=== PATIENT | female | born 1990 | race American Indian/Alaskan Native ===

== ENCOUNTER 2022-12-02 07:40 | Day surgery (SDC) | payer OTHER ==
[2022-11-30 12:14] VITALS: BMI 32.1
[~2022-12-02 07:40] MED LIST: LACTATED RINGERS 1,000 ML IV SCH
[2022-12-02] MEDS ORDERED: PROPOFOL 10 MG/ML 20 ML VIAL IV ONE (08:24)
[2022-12-02] MEDS ORDERED: MIDAZOLAM 2 MG/2 ML VIAL ONE (08:24)
[2022-12-02] MEDS ORDERED: fentaNYL (PF) 50 MCG/ML 2 ML AMP ONE (08:24)
[2022-12-02] MEDS ORDERED: LIDOCAINE 2% INJ 20 MG/ML (2 ML VIAL) ONE (08:24)
--- NOTE | 2022-12-02 08:26 | P.GSHP ---
History of Present Illness H&P Date: 12/02/22 Chief Complaint: GERD, diverticulitis This a 32-year-old female who has complaints of GERD. He states he is also recently diagnosed with diverticulitis. She has significant left lower quadrant pain a month ago. Patient presents today for EGD and colonoscopy. Past Medical History Past Medical History: GERD/Reflux History of Any Multi-Drug Resistant Organisms: None Reported Additional Past Surgical History / Comment(s): EGD Past Anesthesia/Blood Transfusion Reactions: No Reported Reaction Smoking Status: Former smoker - Past Family History Mother Family Medical History: No Reported History Medications and Allergies Home Medications Medication Instructions Recorded Confirmed Type Famotidine [Pepcid] 20 mg PO DAILY 11/30/22 12/02/22 History Allergies Allergy/AdvReac Type Severity Reaction Status Date / Time latex Allergy Rash/Hives Verified 12/02/22 07:51 Surgical - Exam Vital Signs Temp Pulse Resp BP Pulse Ox 97.8 F 92 18 138/61 96 12/02/22 08:02 12/02/22 08:02 12/02/22 08:02 12/02/22 08:02 12/02/22 08:02 - General well developed, well nourished, no distress - Eyes PERRL - ENT normal pinna - Neck no masses - Respiratory normal expansion - Cardiovascular Rhythm: regular - Abdomen Abdomen: soft, non tender Assessment and Plan Assessment: History of GERD and diverticulitis. We'll perform EGD and colonoscopy.
--- NOTE | 2022-12-02 08:45 | P.OP ---
Date of Procedure: 12/02/22 Preoperative Diagnosis: GERD Diverticulitis Postoperative Diagnosis: Mild esophagitis Normal colon: Procedure(s) Performed: EGD Colonoscopy Anesthesia: MAC Surgeon: Mitchell Rivas Pathology: other (Esophagus) Condition: stable Disposition: PACU Description of Procedure: Patient's placed on the endoscopy table in the lateral position. She received IV sedation. The gastro-/oropharynx passed in the esophagus and stomach. Scope was placed through the pylorus. The first and second portion of the duodenum appeared normal. Scope summer back the antrum this appeared normal. Scope was retroflexed and there was a small hiatal hernia visualized. The GE junction was at 39 cm. The distal esophagus. Minimal inflamed. A biopsies performed. The proximal esophagus appeared normal. Scope withdrawn for patient. Next digital rectal exam was performed. This revealed no ebonized. The flexible colonoscope was then placed patient anus passed throughout the entire colon. Ileocecal valve was visualized. The cecum, ascending and transverse colon appeared normal. The descending and sigmoid colon appeared normal. Scope summer back the rectum this appeared normal. Scope withdrawn for patient.
[2022-12-02 15:57] VITALS: BP 121/85; PULSE 85; RESP 17; TEMP 97.8
== END 2022-12-02 09:38 | disposition home or self-care (01) ==
LOC: ORWHC2ENDO 07:40
PROVIDERS: ATTEND Surgery
DX: K21.00 Gastro-esophageal reflux disease with esophagitis, without bleeding (principal); Z87.891 Personal history of nicotine dependence; Z91.040 Latex allergy status; Z79.899 Other long term (current) drug therapy
CPT/HCPCS: 81025; 88305; 43239; 45378; J2250; J3010; J2704; J2001

== ENCOUNTER → 2022-12-23 | Outpatient (CLI) | payer OTHER ==
[2022-12-23 22:10] LABS: Basophils # (A) 0.03 X 10*3/uL (0.00-0.10); Basophils % (A) 0.6 %; Eosinophils # (A) 0.07 X 10*3/uL (0.04-0.35); Eosinophils % (A) 1.4 %; HCT 39.9 % (37.2-46.3); HGB 13.1 d/dL (12.0-15.0); Lymphocytes # (A) 1.37 X 10*3/uL (0.90-5.00); Lymphocytes % (A) 27.7 %; MCH 30.3 pg (27.0-32.0); MCHC 32.8 d/dL (32.0-37.0); MCV 92.4 FL (80.0-97.0); Mean Platelet Volume 10.7 FL (9.5-12.2); Monocytes # (A) 0.32 X 10*3/uL (0.20-1.00); Monocytes % (A) 6.5 %; NRBC Per 100 WBC 0 X 10*3/uL (0.00-0.01); Neutrophils # (A) 3.14 X 10*3/uL (1.80-7.70); Neutrophils % (A) 63.6 %; Platelet Count 210 X 10*3/uL (140-440); RBC 4.32 X 10*6/uL (4.10-5.20); RDW 12.3 % (11.5-14.5); WBC 4.94 X 10*3/uL (4.50-10.00)
== END | disposition home or self-care (01) ==
LOC: LABPAT 14:02
PROVIDERS: ATTEND Surgery
DX: Z01.812 Encounter for preprocedural laboratory examination (principal); K21.00 Gastro-esophageal reflux disease with esophagitis, without bleeding
CPT/HCPCS: 36415; 85025; 86850; 86900; 86901

== ENCOUNTER 2022-12-24 08:27 | Observation (INO) | payer OTHER ==
[2022-12-20 13:11] VITALS: BMI 31.1
[2022-12-24] MEDS: LACTATED RINGERS 1,000 ML IV SCH (08:22)
[~2022-12-24 08:27] MED LIST changes: +ACETAMINOPHEN TAB 500 MG TAB PO PRN; +DEXAMETHASONE SOD PHOSPHATE 4 MG/ML 1 ML VIAL IV ONE; +HEPARIN SODIUM,PORCINE/PF 5,000 UNIT/0.5 ML SYRINGE SQ PRN; -LACTATED RINGERS 1,000 ML IV SCH; +LIDOCAINE 1% (10MG/ML) FOR IV START INTRADERMA PRN; +MIDAZOLAM 2 MG/2 ML VIAL IV PRN; +ONDANSETRON 4 MG/2 ML VIAL IVP ONE
[2022-12-24] MEDS ORDERED: LIDOCAINE 1% INJ 10MG/ML (20 ML MDV) ONE (10:09)
[2022-12-24] MEDS ORDERED: SUCCINYLCHOLINE CHLORIDE 200 MG/10 ML VIAL IV ONE (10:09)
[2022-12-24] MEDS ORDERED: ROCURONIUM 10 MG/ML (5 ML VIAL) IV ONE (10:09)
[2022-12-24] MEDS ORDERED: MIDAZOLAM 2 MG/2 ML VIAL ONE (10:09)
[2022-12-24] MEDS ORDERED: fentaNYL (PF) 50 MCG/ML 2 ML AMP ONE (10:09)
[2022-12-24] MEDS ORDERED: GLYCOPYRROLATE 0.2 MG/ML 2 ML VIAL ONE (10:09)
[2022-12-24] MEDS ORDERED: PROPOFOL 10 MG/ML 20 ML VIAL IV ONE (10:09)
[2022-12-24] MEDS ORDERED: NEOSTIGMINE 1 MG/ML 10 ML VIAL ONE (10:09)
[2022-12-24] MEDS ORDERED: HYDROmorphone (PF) 1 MG/ML ONE (10:09)
[2022-12-24] MEDS ORDERED: BUPIVACAINE (PF) 0.25% 30 ML VIAL SQ ONE (10:34)
[2022-12-24] MEDS ORDERED: ACETAMINOPHEN TAB 325 MG TAB PO PRN (11:03)
[2022-12-24] MEDS ORDERED: LACTATED RINGERS 1,000 ML IV ONE (11:03)
[2022-12-24] MEDS ORDERED: NALOXONE 0.4 MG/ML 1 ML VIAL IV PRN (11:03)
--- NOTE | 2022-12-24 11:03 | P.OP ---
Date of Procedure: 12/24/22 Preoperative Diagnosis: GERD Postoperative Diagnosis: GERD Procedure(s) Performed: Laparoscopic Shayy fundal plication Anesthesia: DOROTHY Surgeon: Mitchell Rivas Estimated Blood Loss (ml): 5 Pathology: none sent Condition: stable Disposition: PACU Description of Procedure: Antonio patient was placed on the operating table in the supine position. The patient received general anesthesia. And was placed in dorsal lithotomy position. The patient was prepped and draped in the usual sterile fashion. The skin incision sites were anesthetized with 1% local Xylocaine. The skin was incised in the left periumbilical area and then using a blade less 5 mm trocar under direct visualization panel cavity was entered. After adequate insufflation the laparoscope was then placed into the peritoneal cavity. Next a 5 mm trochars placed in the right epigastric position. Another 5 millimeter trocar the right lateral position. Another 5 millimeter trocar in the left lateral position a 5 mm trocar is placed in the left epigastric position. And then the initial 5 mm trocar was exchanged for a 10 mm trocar. The left lateral lobe liver was retracted. The hernia was seen. The crural defect was then dissected using the Harmonic scissors device. A 360 crural dissection was performed the esophagus stomach was reduced back into the peritoneal Cavity. The crural defect was then closed using 2-0 Ethibond suture. Next the fundus of the stomach was mobilized using the Center scissors device. and then a 58- Pashto bougie dilator was placed oropharynx passed into the esophagus and stomach the fundal plication wrap was then performed by grasping the fundus posteriorly and bringing it around the esophagus and stomach fundoplication was then performed using 2-0 Ethibond suture. Care was taken that the fundal location rested over top of the intra-abdominal esophagus. There was no injury seen to the stomach or esophagus. The dilator was then withdrawn. The abdomen was irrigated there is no bleeding seen. The trochars were then withdrawn and then skin incision sites were closed using 3-0 Monocryl suture Steri-Strips are applied. Patient thought procedure well and sent to recovery room in stable condition.
[2022-12-24] MEDS: HYDROmorphone 0.5 MG/0.5 ML SYRINGE IVP PRN ×4 (11:22→21:05)
[2022-12-24] MEDS: ONDANSETRON 4 MG/2 ML VIAL IVP PRN ×3 (11:22→21:10)
[2022-12-24] MEDS: KETOROLAC 15 MG/ML 1 ML VIAL IVP SCH ×3 (14:30→23:40)
[2022-12-25] MEDS: HYDROmorphone 0.5 MG/0.5 ML SYRINGE IVP PRN ×2 (00:41→04:24)
[2022-12-25] MEDS: KETOROLAC 15 MG/ML 1 ML VIAL IVP SCH ×3 (05:57→17:42)
[2022-12-25] MEDS: LACTATED RINGERS 1,000 ML IV SCH (06:55)
[2022-12-25] MEDS: HYDROcodone/APAP 5-325MG 1 EACH TAB PO PRN ×3 (08:50→21:45)
[2022-12-25] MEDS: ENOXAPARIN 40 MG/0.4 ML SYRINGE SQ SCH ×2 (08:51→11:35)
[2022-12-25] MEDS ORDERED: hydrOXYzine pamoate 25 MG CAP PO PRN (12:31)
--- NOTE | 2022-12-25 13:32 | CONS ---
CONSULTATION REASON FOR CONSULTATION: Regarding anxiety and other medical issues, requested by Surgery. HISTORY OF PRESENT ILLNESS: This is a 32-year-old woman with a past history of anxiety, history of nicotine dependence, underwent laparoscopic Shayy fundoplication for hiatal hernia. There is no history of any fever, rigors, chills, chest pain, palpitations at this time. PAST MEDICAL HISTORY: Reviewed and includes anxiety. Rest of the chart is also reviewed. HOME MEDICATIONS: Hydroxyzine, dose and rest of medications noted. ALLERGIES: Latex. FAMILY HISTORY: No history of heart disease or strokes in the family. SOCIAL HISTORY: Previous history of smoking. REVIEW OF SYSTEMS: 14-point review is negative as mentioned. PHYSICAL EXAMINATION: VITAL SIGNS: Pulse is 83, blood pressure 120/77, respirations 16. NECK: No jugular venous distention. CARDIOVASCULAR: S1, S2 muffled. RESPIRATORY: Breath sounds diminished at the bases. ABDOMEN: Soft, nontender. LEGS: No edema. No swelling. Nonfocal. SKIN: No ulcer, rash, or bleeding. JOINTS: No active deforming arthropathy. LABORATORY DATA: Not available. ASSESSMENT: 1. Status post laparoscopic Shayy fundoplication. 2. History of anxiety. 3. History of nicotine dependence. RECOMMENDATIONS AND DISCUSSION: This 32-year-old woman presented after surgery. At this time, I recommend to continue current medications, symptomatic treatment, resume the home medications. DVT prophylaxis. Incentive spirometry. Follow closely with primary physician after discharge. MMODL / IJN: [id number] /
--- NOTE | 2022-12-25 17:07 | P.PN ---
Progress Note - Text Progress Note Date: 12/25/22 POD #1 Laparoscopic Shayy Fundoplication -CLD -Pain and Nausea Control -OOB,ambulate, IS -IM for medical management -Pepcid HPI No acute events overnight General-NAD CVS-RRR Lungs-NLB Abdomen-soft Incision C/D/I Ext- no edema
[2022-12-26] MEDS: KETOROLAC 15 MG/ML 1 ML VIAL IVP SCH ×2 (00:24→05:52)
[2022-12-26] MEDS: LACTATED RINGERS 1,000 ML IV SCH (05:01)
[2022-12-26] MEDS: HYDROcodone/APAP 5-325MG 1 EACH TAB PO PRN ×2 (05:58→12:25)
[2022-12-26 07:23] LABS: African American GFR (CKD) >90 (>60 ml/min/1.73 sqM); Anion Gap 7 mmol/L; Blood Urea Nitrogen 6 mg/dL (7-17); Calcium 8.9 mg/dL (8.4-10.2); Carbon Dioxide 23 mmol/L (22-30); Chloride 107 mmol/L (98-107); Glucose 89 mg/dL (74-99); Non-African American GFR(CKD) >90 (>60 ml/min/1.73 sqM); Potassium 3.7 mmol/L (3.5-5.1); Sodium 137 mmol/L (137-145)
[2022-12-26] MEDS: ENOXAPARIN 40 MG/0.4 ML SYRINGE SQ SCH (07:47)
[2022-12-26 08:20] VITALS: BP 131/72; PULSE 93; RESP 18; TEMP 98.1
[2022-12-26] MEDS ORDERED: FAMOTIDINE 20 MG TAB PO SCH (09:00)
--- NOTE | 2022-12-26 09:40 | P.DS ---
Providers Date of admission: 12/24/22 11:03 Expected date of discharge: 12/26/22 Attending physician: Mitchell Rivas Consults: 12/24/22 11:03 Consult Physician Routine Consulting Provider: Singh Quiñonez Consult Reason/Comments: Medical management Do you want consulting provider notified?: Yes Primary care physician: Stated None Hospital Course: This a 32-year-old female who underwent uneventful laparoscopic dislocation. Patient was doing well with her discharge. She had no complaints. She was tolerating diet. Procedures: Laparoscopic Shayy fundoplication Patient Condition at Discharge: Good Plan - Discharge Summary Discharge Rx Participant: Yes New Discharge Prescriptions: New oxyCODONE HCL [OxyIR] 5 mg PO Q6H PRN 3 Days #10 tab PRN Reason: Pain Docusate [Colace] 100 mg PO BID #20 capsule Ibuprofen [Motrin] 600 mg PO Q6HR PRN #40 tab PRN Reason: Pain oxyCODONE HCL [OxyIR] 5 mg PO Q6H PRN 3 Days #10 tab PRN Reason: Pain Acetaminophen Tab [Tylenol] 650 mg PO Q6H #30 tab No Action Famotidine [Pepcid] 20 mg PO DAILY hydrOXYzine pamoate [hydrOXYzine PAMOATE] 25 mg PO DAILY PRN PRN Reason: Anxiety Discharge Medication List Famotidine [Pepcid] 20 mg PO DAILY 11/30/22 [History] hydrOXYzine pamoate [hydrOXYzine PAMOATE] 25 mg PO DAILY PRN 12/20/22 [History] Acetaminophen Tab [Tylenol] 650 mg PO Q6H #30 tab 12/24/22 [Rx] Docusate [Colace] 100 mg PO BID #20 capsule 12/24/22 [Rx] Ibuprofen [Motrin] 600 mg PO Q6HR PRN #40 tab 12/24/22 [Rx] oxyCODONE HCL [OxyIR] 5 mg PO Q6H PRN 3 Days #10 tab 12/24/22 [Rx] oxyCODONE HCL [OxyIR] 5 mg PO Q6H PRN 3 Days #10 tab 12/26/22 [Rx] Follow up Appointment(s)/Referral(s): Mitchell Rivas MD [STAFF PHYSICIAN] - 1 Week Discharge Disposition: HOME SELF-CARE
--- NOTE | 2022-12-26 13:38 | PN ---
PROGRESS NOTE DATE OF SERVICE: 12/26/2022 SUBJECTIVE: This is a 32-year-old woman, who was admitted after laparoscopic Shayy fundoplication, is improving significantly. No chest pain. No palpitation. OBJECTIVE: VITAL SIGNS: Pulse is 93, blood pressure 130/70, respirations 18. CHEST: Clear to auscultation. CARDIOVASCULAR: S1, S2. ABDOMEN: Soft, status post surgery. NERVOUS SYSTEM: Nonfocal. LABORATORY DATA: Reviewed. ASSESSMENT: 1. Status post laparoscopic Shayy fundoplication. 2. History of anxiety. 3. History of nicotine dependence. RECOMMENDATIONS: Recommend to continue current management and continue symptomatic treatment. [place] prescription for 4 tablets given so that the patient will be able to fill her prescriptions. Follow with primary physician after discharge. Rest of the recommendations per Surgery. MMODL / IJN: [id number] /
== END 2022-12-26 12:39 | disposition home or self-care (01) ==
LOC: OR 08:27 → 5NMEDONC 11:03 → OR 11:03 → 5NMEDONC 12:41
PROVIDERS: ADMIT Surgery; ATTEND Surgery
DX: K21.01 Gastro-esophageal reflux disease with esophagitis, with bleeding (principal); K44.9 Diaphragmatic hernia without obstruction or gangrene; F41.9 Anxiety disorder, unspecified; Z79.899 Other long term (current) drug therapy; Z91.040 Latex allergy status; Z87.891 Personal history of nicotine dependence
CPT/HCPCS: 81025; 80048; 85025; 43280; G0378 ×2; J2250; J0330; J1100; J2710; J0690; J2405; J2001; J3010; J1170 ×3; J1885 ×3; J2704; J1644; J0665

== ENCOUNTER 2023-03-05 10:32 | Emergency (ER) | payer OTHER ==
[2023-03-05 10:54] VITALS: TEMP 98.3
[2023-03-05] MEDS ORDERED: diphenhydrAMINE 50 MG/ML 1 ML VIAL IVP STA (12:33)
[2023-03-05] MEDS ORDERED: SODIUM CHLORIDE 0.9% 1,000 ML IV STA (12:33)
[2023-03-05] MEDS ORDERED: METOCLOPRAMIDE 5 MG/ML 2 ML VIAL IVP STA (12:33)
--- NOTE | 2023-03-05 13:20 | ED ---
General Adult HPI - General Chief complaint: GI Bleed Stated complaint: Headache Time Seen by Provider: 03/05/23 11:57 Source: patient, RN notes reviewed Mode of arrival: ambulatory Limitations: no limitations - History of Present Illness Initial comments: 32-year-old female presents to the room for a chief complaint of headache. Patient states that starting last Tuesday so about one week ago she developed a headache. Did not come on suddenly. Patient states it is across her forehead and wraps around the left side of her head. She does have mild nausea intermittently. She has sensitivity to light and sound. She has had headaches in the past however they have never lasted this long. They also usually resolved with Motrin and this one hasn't. Patient also states she has had slight bleeding from the rectum over the past few days. She had a colonoscopy a couple months ago and is a patient of Dr. López. She denies abdominal pain or significant blood loss.Patient has no other complaints at this time including shortness of breath, chest pain, abdominal pain, nausea or vomiting, or visual changes. - Related Data Home Medications Medication Instructions Recorded Confirmed Famotidine [Pepcid] 20 mg PO DAILY 11/30/22 12/24/22 hydrOXYzine pamoate [hydrOXYzine 25 mg PO DAILY PRN 12/20/22 12/24/22 PAMOATE] Previous Rx's Medication Instructions Recorded Acetaminophen Tab [Tylenol] 650 mg PO Q6H #30 tab 12/24/22 Docusate [Colace] 100 mg PO BID #20 capsule 12/24/22 Ibuprofen [Motrin] 600 mg PO Q6HR PRN #40 tab 12/24/22 oxyCODONE HCL [OxyIR] 5 mg PO Q6H PRN 3 Days #10 tab 12/24/22 HYDROcodone/APAP 5-325MG [[place] 1 tab PO Q6HR PRN #10 tab 12/26/22 5-325] HYDROcodone/APAP 5-325MG [[place] 1 tab PO Q6HR PRN 3 Days #4 tab 12/26/22 5-325] oxyCODONE HCL [OxyIR] 5 mg PO Q6H PRN 3 Days #10 tab 12/26/22 Allergies Allergy/AdvReac Type Severity Reaction Status Date / Time latex Allergy Rash/Hives Verified 03/05/23 10:44 Review of Systems ROS Statement: Those systems with pertinent positive or pertinent negative responses have been documented in the HPI. ROS Other: All systems not noted in ROS Statement are negative. Past Medical History Past Medical History: GERD/Reflux Additional Past Medical History / Comment(s): HIATAL HERNIA History of Any Multi-Drug Resistant Organisms: None Reported Additional Past Surgical History / Comment(s): EGD. COLONOSCOPY/EGD-12/02/22 Past Anesthesia/Blood Transfusion Reactions: No Reported Reaction Past Psychological History: Anxiety Smoking Status: Current some day smoker Past Alcohol Use History: Occasional Past Drug Use History: Marijuana - Past Family History Mother Family Medical History: No Reported History General Exam Limitations: no limitations General appearance: alert, in no apparent distress Head exam: Present: atraumatic Eye exam: Present: normal appearance, PERRL, EOMI. Absent: scleral icterus, conjunctival injection ENT exam: Present: normal exam, mucous membranes moist Neck exam: Present: normal inspection, full ROM. Absent: tenderness Respiratory exam: Present: normal lung sounds bilaterally. Absent: respiratory distress, wheezes Cardiovascular Exam: Present: regular rate, normal rhythm, normal heart sounds Neurological exam: Present: alert, oriented X3, normal gait Course Vital Signs 03/05/23 10:43 Temperature 98.3 F Pulse Rate 77 Respiratory 20 Rate Blood Pressure 137/84 O2 Sat by Pulse 99 Oximetry Medical Decision Making - Medical Decision Making Was pt. sent in by a medical professional or institution (IRINA Pereira, FINAL INSPECTOR TRUCK TRAILER, urgent care, hospital, or residential...) When possible be specific @ -No Did you speak to anyone other than the patient for history (EMS, parent, family, police, friend...)? What history was obtained from this source @ -No Did you review nursing and triage notes (agree or disagree)? Why? @ -I reviewed and agree with nursing and triage notes Were old charts reviewed (outside hosp., previous admission, EMS record, old EKG, old radiological studies, urgent care reports/EKG's, residential records)? Report findings @ -No old charts were reviewed Differential Diagnosis (chest pain, altered mental status, abdominal pain women, abdominal pain men, vaginal bleeding, weakness, fever, dyspnea, syncope, hea dache, dizziness, GI bleed, back pain, seizure, CVA, palpatations, mental health)? @ -Differential Headache: Migraine, tension, cluster, carbon monoxide, central venous thrombosis, pension karma temporal arteritis, acute closure glaucoma, intercranial hemorrhage, mastoiditis, sinusitis, head injury, this is not meant to be an all-inclusive list. EKG interpreted by me (3pts min.). @ -None done X-rays interpreted by me (1pt min.). @ -None done CT interpreted by me (1pt min.). @ -None done U/S interpreted by me (1pt. min.). @ -None done What testing was considered but not performed or refused? (CT, X-rays, U/S, labs)? Why? @ -None What meds were considered but not given or refused? Why? @ -None Did you discuss the management of the patient with other professionals (professionals i.e. IRINA Pereira, FINAL INSPECTOR TRUCK TRAILER, lab, RT, psych nurse, social services specialist, bag machine adjuster, teacher, information assurance officer, special education case manager)? Give summary @ -No Was smoking cessation discussed for >3mins.? @ -No Was critical care preformed (if so, how long)? @ -No Were there social determinants of health that impacted care today? How? (Homelessness, low income, unemployed, alcoholism, drug addiction, transportation, low edu. Level, literacy, decrease access to med. care, care home, rehab)? @ -No Was there de-escalation of care discussed even if they declined (Discuss DNR or withdrawal of care, Hospice)? DNR status @ -No What co-morbidities impacted this encounter? (DM, HTN, Smoking, COPD, CAD, Cancer, CVA, ARF, Chemo, Hep., AIDS, mental health diagnosis, sleep apnea, morbid obesity)? @ -None Was patient admitted / discharged? Hospital course, mention meds given and route, prescriptions, significant lab abnormalities, going to OR and other pertinent info. @ -Was pt. sent in by a medical professional or institution (IRINA Pereira, FINAL INSPECTOR TRUCK TRAILER, urgent care, hospital, or residential...) When possible be specific @ -No Did you speak to anyone other than the patient for history (EMS, parent, family, police, friend...)? What history was obtained from this source @ -No Did you review nursing and triage notes (agree or disagree)? Why? @ -I reviewed and agree with nursing and triage notes Were old charts reviewed (outside hosp., previous admission, EMS record, old EKG, old radiological studies, urgent care reports/EKG's, residential records)? Report findings @ -No old charts were reviewed Differential Diagnosis (chest pain, altered mental status, abdominal pain women, abdominal pain men, vaginal bleeding, weakness, fever, dyspnea, syncope, headache, dizziness, GI bleed, back pain, seizure, CVA, palpatations, mental health)? @ -not applicable EKG interpreted by me (3pts min.). @ -As above X-rays interpreted by me (1pt min.). @ -None done CT interpreted by me (1pt min.). @ -None done U/S interpreted by me (1pt. min.). @ -None done What testing was considered but not performed or refused? (CT, X-rays, U/S, labs)? Why? @ -None What meds were considered but not given or refused? Why? @ -None Did you discuss the management of the patient with other professionals (professionals i.e. , PA, FINAL INSPECTOR TRUCK TRAILER, lab, RT, psych nurse, social services specialist, bag machine adjuster, teacher, information assurance officer, special education case manager)? Give summary @ -No Was smoking cessation discussed for >3mins.? @ -No Was critical care preformed (if so, how long)? @ -No Were there social determinants of health that impacted care today? How? (Homelessness, low income, unemployed, alcoholism, drug addiction, transportation, low edu. Level, literacy, decrease access to med. care, care home, rehab)? @ -No Was there de-escalation of care discussed even if they declined (Discuss DNR or withdrawal of care, Hospice)? DNR status @ -No What co-morbidities impacted this encounter? (DM, HTN, Smoking, COPD, CAD, Cancer, CVA, ARF, Chemo, Hep., AIDS, mental health diagnosis, sleep apnea, morbid obesity)? @ -None Was patient admitted / discharged? Hospital course, mention meds given and route, prescriptions, significant lab abnormalities, going to OR and other pertinent info. @ -Vitals are stable. CBC CMP unremarkable. HCG negative. Brain CT obtained which showed no acute process. Was offered IV fluids, Reglan, Benadryl, Toradol. She refused the Reglan and Benadryl. She was given Toradol which didn't help much but she did not want other medications. Patient states her doctor prescribed her sumatriptan which she hasn't picked it up or tried it. At this point patient is now any further treatment. She will be discharged home to follow up with primary care and I will also give her a name to a neurologist. She should try to sumatriptan at least. If symptoms worsen she should return to the emergency room. Undiagnosed new problem with uncertain prognosis? @ -No Drug Therapy requiring intensive monitoring for toxicity (Heparin, Nitro, Insuli n, Cardizem)? @ -No Were any procedures done? @ -No Diagnosis/symptom? @ -Headache Acute, or Chronic, or Acute on Chronic? @ -Acute Uncomplicated (without systemic symptoms) or Complicated (systemic symptoms)? @ -Uncomplicated Side effects of treatment? @ -No Exacerbation, Progression, or Severe Exacerbation? @ -No Poses a threat to life or bodily function? How? (Chest pain, [place], NH, pneumonia, PE, COPD, DKA, ARF, appy, cholecystitis, CVA, Diverticulitis, Homicidal, Suicidal, threat to staff... and all critical care pts) @ no - Lab Data Result diagrams: 03/05/23 13:31 03/05/23 13:31 Lab Results 03/05/23 03/05/23 03/05/23 Range/Units 12:46 13:31 13:31 WBC 6.7 (3.8-10.6) k/uL RBC 4.80 (3.80-5.40) m/uL Hgb 14.9 (11.4-16.0) gm/dL Hct 44.4 (34.0-46.0) % MCV 92.7 (80.0-100.0) fL MCH 31.1 (25.0-35.0) pg MCHC 33.5 (31.0-37.0) g/dL RDW 12.9 (11.5-15.5) % Plt Count 211 (150-450) k/uL MPV 8.2 Neutrophils % 69 % Lymphocytes % 22 % Monocytes % 5 % Eosinophils % 2 % Basophils % 0 % Neutrophils # 4.7 (1.3-7.7) k/uL Lymphocytes # 1.5 (1.0-4.8) k/uL Monocytes # 0.4 (0-1.0) k/uL Eosinophils # 0.1 (0-0.7) k/uL Basophils # 0.0 (0-0.2) k/uL Sodium 139 (137-145) mmol/L Potassium 5.2 H (3.5-5.1) mmol/L Chloride 105 (98-107) mmol/L Carbon Dioxide 22 (22-30) mmol/L Anion Gap 12 mmol/L BUN 8 (7-17) mg/dL Creatinine 0.67 (0.52-1.04) mg/dL Est GFR (CKD-EPI)AfAm >90 (>60 ml/min/1.73 sqM) Est GFR (CKD-EPI)NonAf >90 (>60 ml/min/1.73 sqM) Glucose 75 (74-99) mg/dL Calcium 9.4 (8.4-10.2) mg/dL Total Bilirubin 0.7 (0.2-1.3) mg/dL AST 61 H (14-36) U/L ALT 67 H (4-34) U/L Alkaline Phosphatase 61 (38-126) U/L Total Protein 7.7 (6.3-8.2) g/dL Albumin 4.7 (3.5-5.0) g/dL Urine HCG, Qual Not Detected (Not Detectd) Disposition Clinical Impression: Headache Disposition: HOME SELF-CARE Condition: Good Instructions (If sedation given, give patient instructions): Acute Headache (ED) Additional Instructions: Please follow up with PCP and neurology. Return to the ER for any worsening symptoms Is patient prescribed a controlled substance at d/c from ED?: No Referrals: Tiffany Guzman DO [Primary Care Provider] - 1-2 days Time of Disposition: 15:06
--- NOTE | 2023-03-05 13:30 | CT ---
EXAMINATION TYPE: CT brain wo con CT DLP: 1095.4 mGycm, Automated exposure control for dose reduction was used. DATE OF EXAM: 03/05/2023 1:24 PM COMPARISON: None. CLINICAL INDICATION:Female, 32 years old with history of LINARES x 1 week, headache TECHNIQUE: Brain: Axial CT images of the brain were obtained with coronal and sagittal reformats created and rev iewed. Contrast used: None. Oral contrast used: None. FINDINGS: Brain: Extra-axial spaces: No abnormal extra-axial fluid collections. Ventricular system: Within normal limits Cerebral parenchyma: No acute intraparenchymal hemorrhage or mass effect. The shaver-white junction is well differentiated. Cerebellum: Unremarkable. Mass effect: No evidence of midline shift. Intracranial vasculature: unremarkable Soft tissues: Normal. Calvarium/osseous structures: No depressed skull fracture. Paranasal sinuses and mastoid air cells: Mild scattered paranasal sinus disease. Visualized orbits: Orbital contents are intact. IMPRESSION: No acute intracranial process.
[2023-03-05 13:54] LABS: Basophils % (A) 0 %; Eosinophils # (A) 0.1 k/uL (0-0.7); Eosinophils % (A) 2 %; HCT 44.4 % (34.0-46.0); HGB 14.9 gm/dL (11.4-16.0); Lymphocytes # (A) 1.5 k/uL (1.0-4.8); Lymphocytes % (A) 22 %; MCH 31.1 pg (25.0-35.0); MCHC 33.5 g/dL (31.0-37.0); MCV 92.7 fL (80.0-100.0); Mean Platelet Volume 8.2; Monocytes # (A) 0.4 k/uL (0-1.0); Monocytes % (A) 5 %; Neutrophils # (A) 4.7 k/uL (1.3-7.7); Neutrophils % (A) 69 %; Platelet Count 211 k/uL (150-450); RDW 12.9 % (11.5-15.5); WBC 6.7 k/uL (3.8-10.6)
[2023-03-05] MEDS ORDERED: KETOROLAC 15 MG/ML 1 ML VIAL IVP STA (13:56)
[2023-03-05 14:11] LABS: ALT 67 U/L (4-34); AST 61 U/L (14-36); African American GFR (CKD) >90 (>60 ml/min/1.73 sqM); Albumin 4.7 g/dL (3.5-5.0); Alkaline Phosphatase 61 U/L (38-126); Anion Gap 12 mmol/L; Blood Urea Nitrogen 8 mg/dL (7-17); Calcium 9.4 mg/dL (8.4-10.2); Carbon Dioxide 22 mmol/L (22-30); Chloride 105 mmol/L (98-107); Glucose 75 mg/dL (74-99); Non-African American GFR(CKD) >90 (>60 ml/min/1.73 sqM); Sodium 139 mmol/L (137-145); Total Bilirubin 0.7 mg/dL (0.2-1.3); Total Protein 7.7 g/dL (6.3-8.2)
[2023-03-05 14:33] LABS: Potassium 5.2 mmol/L (3.5-5.1)
[2023-03-05 15:44] VITALS: BP 134/83; PULSE 71; RESP 16
== END 2023-03-05 15:28 | disposition home or self-care (01) ==
LOC: EC 10:32
DX: R51.9 Headache, unspecified (principal); F41.9 Anxiety disorder, unspecified; F17.200 Nicotine dependence, unspecified, uncomplicated; F12.90 Cannabis use, unspecified, uncomplicated; Z91.040 Latex allergy status; Z79.899 Other long term (current) drug therapy
CPT/HCPCS: 36415; 80053; 85025; 81025; 70450; 99285; 96374; 96361; J1885